=== PATIENT | female | born 1985 | race Caucasian/White ===

== ENCOUNTER 2023-07-07 16:14 | Emergency (ER) | payer OTHER ==
[2023-07-07 16:46] LABS: Blood, Urine Negative (Negative); Glucose, Urine (Dipstick) 100 mg/dL (Negative)
[2023-07-07 16:51] LABS: Bilirubin Unable to Interpret (Negative); Clarity Hazy (Clear); Pregnancy Test - Urine (BHCG) Negative (Negative); Pregu Control Background? CLEAR/WHITE (CLR/WHITE); Pregu Control Bar Appear? YES (CONTROL BAR)
[2023-07-07 16:52] LABS: Ketone, Urine Unable to Interpret mg/dL (Negative); Leukocyte Unable to Interpret (Negative); Nitrite Unable to Interpret (Negative); Protein, Urine (Dipstick) Unable to Interpret mg/dL (Neg-Trace); Urobilinogen UNABLE TO INTERPRET mg/dL (Less than 2)
[2023-07-07 16:53] LABS: Bacteria/HPF 2+ HPF (None Seen); CAUTI Indications for Culture Pelvic or flank pain; RBC/HPF 0-3 HPF (0-3); WBC/HPF 0-3 HPF (0-3)
[2023-07-07 16:55] LABS: Urine Culture Reflex No No
[2023-07-07 17:34] LABS: #Basophils 0.1 thou/uL (0.0-0.2); #Lymphocytes 1.5 thou/uL (1.20-3.40); #Monocytes 0.5 thou/uL (0.11-0.59); #Neutrophils 15.9 thou/uL (1.40-6.50); %Basophils 0.5 % (0.0-1.0); %Lymphocytes 8.3 % (21.0-51.0); %Monocytes 2.7 % (0.0-10.0); %Neutrophils 88.5 % (42.0-75.0); Hematocrit 48.3 % (36.0-47.0); Hemoglobin 15.7 g/dL (12.0-16.0); Mean Corpuscular HGB CONC 32.5 g/dL (32.0-36.0); Mean Corpuscular Hemoglobin 27.7 pg (27.0-31.0); Mean Corpuscular Volume 85.4 fl (78.0-98.0); Mean Platelet Volume 8.2 fL (7.4-10.4); Platelet Count 283 10x3/uL (130-400); RBC Distribution Width 15.2 % (11.5-14.5); Red Blood Cell (RBC) Count 5.66 mill/uL (4.20-5.40); White Blood Cell (WBC) Count 17.9 10x3/uL (4.8-10.8)
[2023-07-07 17:43] LABS: Anion Gap 17 mmol/L (10-20); BUN (Urea Nitrogen) 8 mg/dL (7.0-18.7); Calc. Creatinine Clearance 0 mL/min (70-130); Calcium 10.4 mg/dL (7.8-10.44); Carbon Dioxide 22 mmol/L (22-29); Chloride 105 mmol/L (98-107); Estimated GFR 69; Glucose 118 mg/dL (70-105); Potassium 3.6 mmol/L (3.5-5.1); Sodium 140 mmol/L (136-145)
[2023-07-07] MEDS ORDERED: Sodium Chloride 0.9% 1,000 ML ONE ×2 (17:44→19:49)
[2023-07-07] MEDS ORDERED: Ondansetron PF 4 MG/2 ML Vial ONE (17:44)
[2023-07-07] MEDS ORDERED: Ondansetron ODT 4 MG TAB ONE (17:44)
[2023-07-07] MEDS ORDERED: Ketorolac Tromethamine 30 MG/ML VIAL ONE (17:44)
[2023-07-07] MEDS ORDERED: Piperacillin/Tazobactam 3.375 GM VIAL ONE (19:17)
[2023-07-07] MEDS ORDERED: Sodium Chloride 0.9% 100 ML ONE (19:18)
[2023-07-07] MEDS ORDERED: Morphine 4 MG/ML VIAL ONE (19:49)
[2023-07-08] MEDS ORDERED: Piperacillin/Tazobactam 4.5 GM VIAL ONE (01:28)
[2023-07-08] MEDS ORDERED: Sodium Chloride 0.9% 100 ML ONE (01:28)
== END 2023-07-08 06:58 | disposition short-term general hospital (02) ==
LOC: MADERS 16:14
DX: K37 Unspecified appendicitis (principal); I10 Essential (primary) hypertension
CPT/HCPCS: 74176; 80048; 81001; 81025; 85025; 96361; 96365; 96366; 96375; J1885; J2270; J2405; J2543; J3490; J7050; Q0162